=== PATIENT | female | born 1990 | race Caucasian/White ===

== ENCOUNTER 2017-01-19 10:35 | Emergency (ER) | payer BC ==
[2017-01-19 10:51] VITALS: BP 120/75
[2017-01-19] MEDS ORDERED: Ondansetron 4 MG/2 ML SDV IVPUSH ONE (11:07)
[2017-01-19] MEDS ORDERED: Sodium Chloride 0.9% 1,000 ML IV ONE (11:07)
--- NOTE | 2017-01-19 11:19 | EDM.PDOC ---
ED HPI GENERAL MEDICAL PROBLEM - General Chief Complaint: Flank Pain Stated Complaint: GALLBLADDER PAIN/STONE Time Seen by Provider: 01/19/17 11:15 Source of Information: Reports: Patient History Limitations: Reports: No Limitations - History of Present Illness INITIAL COMMENTS - FREE TEXT/NARRATIVE: HISTORY AND PHYSICAL: History of present illness: [Patient comes to the emergency room complaining of right upper quadrant abdominal pain. She states that she had a gallbladder ultrasound yesterday showing a large gallstone. She follows regularly with Dr. Kirby at [facility] and is scheduled to see a surgeon next Sunday, January 25. Patient feels as though it is too long for her to wait to see a surgeon as she is in pain. However the surgeon is out of town until that day and is unable to see her sooner. Today she is also complaining of nausea. Patient verbalizes that she does not want to have any medical care with [facility] and prefers all of her healthcare through [facility]. Discussed with her that we are unable to view her ultrasound result and progress notes through our computer system, but will try to get her information from [facility] while patient is in the ER. Patient last had blood drawn early last week. She has not been taking any over- the-counter medications for her pain or nausea. Denies fever and chills. No sore throat, headaches or earaches. No chest pain shortness of breath or difficulty breathing. No abdominal pain other than stated above. Has not had any vomiting. No change in stools or with urination. No low back pain or muscle or joint aches and pains. Has had no change in her appetite or fluid intake. She is eating normal diet except she has cut dairy from her diet. He] Review of systems: As per history of present illness and below otherwise all systems reviewed and negative. Past medical history: As per history of present illness and as reviewed below otherwise noncontributory. Surgical history: As per history of present illness and as reviewed below otherwise noncontributory. Social history: No reported history of drug or alcohol abuse. Family history: As per history of present illness and as reviewed below otherwise noncontributory. Physical exam: HEENT: Atraumatic, normocephalic. Oral mucous membranes are pink and moist. Lungs: Clear to auscultation, breath sounds equal bilaterally. Heart: S1S2, regular rate and rhythm. Abdomen: Obese. Soft, nondistended. She is tender with palpation over left and right upper quadrant. No CVA tenderness or back pain with palpation. Negative for masses or guarding and rebound. Pelvis: Stable nontender. Genitourinary: Deferred. Rectal: Deferred. Extremities: Atraumatic, no cyanosis or edema to feet or lower legs. Neurovascular unremarkable. Neuro: Awake, alert, oriented. Motor and sensory unremarkable throughout. Exam nonfocal. Psych: Affect is flat, but patient makes good eye contact. Diagnostics: [CBC, CMP, UA, urine , amylase, lipase] Therapeutics: [1 liter NS, Zofran 4mg IV] Impression: [RUQ abdominal pain, history of gallstone] Plan: [Patient elects to leave the ER and follow up with Dr. Kirby. Discussed with patient the labs that are necessary to follow, and that medications can be given for pain and nausea. She chooses to leave the ER and signs out AMA. ] Definitive disposition and diagnosis as appropriate pending reevaluation and review of above. 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: , 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 (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 Below) Other OB/BYN History: HELLP Hematologic History: Reports: Anemia - Past Surgical History Musculoskeletal Surgical History: Reports: Other (See Below) Social & Family History - Family History Family Medical History: Noncontributory Cardiac: Reports: Hypertension - Tobacco Use Smoking Status *Q: Never Smoker Second Hand Smoke Exposure: No - Caffeine Use Caffeine Use: Reports: Coffee Caffeine Use Comment: 2 cups daily - Alcohol Use Days Per Week of Alcohol Use: 0 - Recreational Drug Use Recreational Drug Use: No ED ROS GENERAL - Review of Systems Review Of Systems: ROS reveals no pertinent complaints other than HPI. ED EXAM, GI/ABD - Physical Exam Exam: See Below Course - Vital Signs Last Recorded V/S: Last Vital Signs Temp 97.5 F 01/19/17 10:48 Pulse 68 01/19/17 10:48 Resp 16 01/19/17 10:48 BP 120/75 01/19/17 10:48 Pulse Ox 95 01/19/17 10:48 - Orders/Labs/Meds Meds: Medications Discontinued Medications Generic Name Dose Route Start Last Admin Trade Name Freq PRN Reason Stop Dose Admin Sodium Chloride 1,000 mls @ 999 mls/hr 01/19/17 11:07 Normal Saline IV 01/19/17 12:07 STAT ONE Ondansetron HCl 4 mg 01/19/17 11:07 Zofran IVPUSH 01/19/17 11:08 ONETIME ONE Departure - Departure Time of Disposition: 12:00 Disposition: Against Medical Advice 07 Clinical Impression: RUQ abdominal pain - Discharge Information Referrals: Shaun Kirby MD [Primary Care Provider] - Forms: ED Department Discharge
== END 2017-01-19 11:15 | disposition left against medical advice (07) ==
LOC: MW.ED 10:35
DX: R10.11 Right upper quadrant pain (principal); Z86.2 Personal history of diseases of the blood and blood-forming organs and certain disorders involving the immune mechanism; Z88.1 Allergy status to other antibiotic agents; Z88.2 Allergy status to sulfonamides
CPT/HCPCS: 99283; 99284

== ENCOUNTER 2018-09-13 16:38 | Emergency (ER) | payer BC ==
[2018-09-13 16:57] VITALS: BP 125/86
--- NOTE | 2018-09-13 17:07 | EDM.PDOC ---
ED HPI GENERAL MEDICAL PROBLEM - General Chief Complaint: General Stated Complaint: SICK Time Seen by Provider: 09/13/18 16:50 - History of Present Illness INITIAL COMMENTS - FREE TEXT/NARRATIVE: HISTORY AND PHYSICAL: History of present illness: Patient's 27-year-old white female presents with concern of sore throat 2 weeks has been no fever chills nausea vomiting and no other complaints Review of systems: As per history of present illness and below otherwise all systems reviewed and negative. Past medical history: As per history of present illness and as reviewed below otherwise noncontributory. Surgical history: As per history of present illness and as reviewed below otherwise noncontributory. Social history: No reported history of drug or alcohol abuse. Family history: As per history of present illness and as reviewed below otherwise noncontributory. Physical exam: HEENT: Atraumatic, normocephalic, pupils reactive, negative for conjunctival pallor or scleral icterus, mucous membranes moist, throat injected no peritonsillar fullness no uvular deviation no trismus potato voice, neck supple , nontender, trachea midline. Lungs: Clear to auscultation, breath sounds equal bilaterally, chest nontender. Heart: S1S2, regular, negative for clicks, rubs, or JVD. Abdomen: Soft, nondistended, nontender. Negative for masses or hepatosplenomegaly. Negative for costovertebral tenderness. Pelvis: Stable nontender. Genitourinary: Deferred. Rectal: Deferred. Extremities: Atraumatic, negative for cords or calf pain. Neurovascular unremarkable. Neuro: Awake, alert, oriented. Cranial nerves II through XII unremarkable. Cerebellum unremarkable. Motor and sensory unremarkable throughout. Exam nonfocal. Diagnostics: Rapid strep Therapeutics: None Impression: #1 pharyngitis Definitive disposition and diagnosis as appropriate pending reevaluation and review of above. Throat Pain Score (Numeric/FACES): 2 - Related Data Allergies Allergy/AdvReac Type Severity Reaction Status Date / Time ciprofloxacin Allergy Hives Verified 09/13/18 16:57 clindamycin Allergy Blurred Verified 09/13/18 16:57 Vision doxycycline Allergy Blurred Verified 09/13/18 16:57 Vision Sulfa (Sulfonamide Allergy Hives Verified 09/13/18 16:57 Antibiotics) Home Meds: Home Meds . 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 WATER MANAGER History: HELLP Hematologic History: Reports: Anemia - Past Surgical History Female Surgical History: Reports: Section Musculoskeletal Surgical History: Reports: Other (See Below) Other Musculoskeletal Surgeries/Procedures:: hip surgery Social & Family History - Family History Family Medical History: Noncontributory Cardiac: Reports: Hypertension - Tobacco Use Smoking Status *Q: Never Smoker - Caffeine Use Caffeine Use: Reports: Coffee Caffeine Use Comment: 2 cups daily - Recreational Drug Use Recreational Drug Use: No ED ROS GENERAL - Review of Systems Review Of Systems: ROS reveals no pertinent complaints other than HPI. ED EXAM, GENERAL - Physical Exam Exam: See Below (See dictation) Course - Vital Signs Last Recorded V/S: Last Vital Signs Temp 36.1 C 09/13/18 16:55 Pulse 93 09/13/18 16:55 Resp 18 09/13/18 16:55 BP 125/86 09/13/18 16:55 Pulse Ox 96 09/13/18 16:55 - Orders/Labs/Meds Orders: Active Orders 24 hr Category Date Time Status CULTURE STREP A CONFIRMATION [] Stat Lab 09/13/18 17:01 Results STREP SCRN A RAPID W CULT CONF [] Stat Lab 09/13/18 17:01 Results Departure - Departure Time of Disposition: 18:04 Disposition: Home, Self-Care 01 Condition: Good Clinical Impression: Pharyngitis - Discharge Information Referrals: PCP,Unknown [Primary Care Provider] - Forms: ED Department Discharge Additional Instructions: The following information is given to patients seen in the emergency department who are being discharged to home. This information is to outline your options for follow-up care. We provide all patients seen in our emergency department with a follow-up referral. The need for follow-up, as well as the timing and circumstances, are variable depending upon the specifics of your emergency department visit. If you don't have a primary care physician on staff, we will provide you with a referral. We always advise you to contact your personal physician following an emergency department visit to inform them of the circumstance of the visit and for follow-up with them and/or the need for any referrals to a consulting specialist. The emergency department will also refer you to a specialist when appropriate. This referral assures that you have the opportunity for followup care with a specialist. All of these measure are taken in an effort to provide you with optimal care, which includes your followup. Under all circumstances we always encourage you to contact your private physician who remains a resource for coordinating your care. When calling for followup care, please make the office aware that this follow-up is from your recent emergency room visit. If for any reason you are refused follow-up, please contact the [facility] emergency department at and asked to speak to the emergency department charge nurse. Motrin/Tylenol as directed push fluids follow-up primary medical doctor as needed as discussed return as needed as discussed - My Orders Last 24 Hours: My Active Orders 09/13/18 17:01 CULTURE STREP A CONFIRMATION [RM] Stat STREP SCRN A RAPID W CULT CONF [RM] Stat - Assessment/Plan Last 24 Hours: My Active Orders 09/13/18 17:01 CULTURE STREP A CONFIRMATION [RM] Stat STREP SCRN A RAPID W CULT CONF [] Stat
== END 2018-09-13 18:19 | disposition home or self-care (01) ==
LOC: MW.ED 16:38
DX: J02.9 Acute pharyngitis, unspecified (principal); Z88.1 Allergy status to other antibiotic agents; Z88.2 Allergy status to sulfonamides
CPT/HCPCS: 87081; 87880-QW; 99282; 99283

== ENCOUNTER 2022-10-30 10:30 | Emergency (ER) | payer BC ==
[2022-10-30] MEDS ORDERED: Acetaminophen 325 MG Tab PO ONE (13:07)
[2022-10-30] MEDS ORDERED: Ibuprofen 400 MG Tab PO ONE (13:07)
[2022-10-30 16:16] VITALS: BP 144/87; PULSE 67
== END 2022-10-30 16:15 | disposition home or self-care (01) ==
LOC: MW.ED 10:30
DX: M79.605 Pain in left leg (principal); Z98.890 Other specified postprocedural states; Z88.1 Allergy status to other antibiotic agents; Z88.2 Allergy status to sulfonamides; Z79.899 Other long term (current) drug therapy
CPT/HCPCS: 73590; 93926; 93971; 99284; A9270

== ENCOUNTER 2024-04-16 12:23 | Emergency (ER) | payer BC ==
[2024-04-16] MEDS: Sodium Chloride 0.9% 10 ML Syringe FLUSH PRN (12:55)
[2024-04-16] MEDS: Sodium Chloride 0.9% 2.5 ML Syringe FLUSH PRN (12:55)
[2024-04-16] MEDS: Sodium Chloride 0.9% 1,000 ML IV STA (12:55)
[2024-04-16 13:09] LABS: EOSINOPHILS ABSOLUTE AUTO 0.02 K/uL (0.00-0.45); EOSINOPHILS PERCENT AUTO 0.4 % (0.0-6.0); HEMATOCRIT 42.2 % (37.0-47.0); HEMOGLOBIN 14.2 g/dL (12.0-16.0); IMMATURE GRAN ABSOLUTE AUTO 0.01 K/uL (0.00-0.05); IMMATURE GRAN PERCENT AUTO 0.2 % (0.0-0.4); LYMPHOCYTES ABSOLUTE AUTO 0.98 K/uL (1.00-4.80); LYMPHOCYTES PERCENT AUTO 18.6 % (24.0-44.0); MEAN CORPUSCULAR HEMOGLOBIN 29.3 pg (28.0-32.0); MEAN CORPUSCULAR HGB CONC 33.6 g/dL (32.0-36.0); MEAN PLATELET VOLUME 10.2 fL (9.4-12.3); MONOCYTES ABSOLUTE AUTO 0.35 K/uL (0.00-0.80); MONOCYTES PERCENT AUTO 6.6 % (0.0-8.0); NEUTROPHILS ABSOLUTE AUTO 3.92 K/uL (1.80-7.70); NEUTROPHILS PERCENT AUTO 74.2 % (41.0-71.0); PLATELET COUNT,PLT 264 K/uL (150-400); RED BLOOD CELL COUNT 4.85 M/uL (4.10-5.30); WHITE BLOOD CELL COUNT,WBC 5.28 K/uL (3.9-11.3)
[2024-04-16 13:48] LABS: A/G RATIO 0.9 (0.9-1.6); ALANINE AMINOTRANSFERASE,ALT 27 IU/L (14-63); ALBUMIN 3.6 g/dL (3.4-5.0); ALKALINE PHOSPHATASE 63 U/L (46-116); ASPARTATE AMNIOTRANSFERASE,AST 17 IU/L (15-37); BILIRUBIN TOTAL 0.3 mg/dL (0.2-1.0); BLOOD UREA NITROGEN,BUN 15 mg/dL (7.0-18.0); CALCIUM 9.2 mg/dL (8.5-10.1); CARBON DIOXIDE,CO2 28.3 mmol/L (21.0-32.0); CHLORIDE,CL 107 mmol/L (98-107); EST CRCL DRUG DOSING (CG) 57.48 mL/min; GLUCOSE RANDOM 106 mg/dL (74-106); MAGNESIUM 2.1 mg/dL (1.8-2.4); POTASSIUM,K 3.8 mmol/L (3.5-5.1); PROTEIN TOTAL,TP 7.4 g/dL (6.4-8.2); SODIUM,NA 143 mmol/L (136-145)
[2024-04-16 13:49] LABS: ESTIMATED GFR 76 mL/min (>60)
[2024-04-16 14:42] LABS: APPEARANCE,URINE CLEAR; BILIRUBIN,URINE NEGATIVE (NEGATIVE); COLOR,URINE YELLOW; GLUCOSE,URINE NEGATIVE (NEGATIVE); KETONES,URINE TRACE mg/dL (NEGATIVE); LEUKOCYTE ESTERASE,URINE NEGATIVE (NEGATIVE); NITRITE,URINE NEGATIVE (NEGATIVE); OCCULT BLOOD,URINE TRACE-INTACT (NEGATIVE); PROTEIN,URINE NEGATIVE (NEGATIVE); UROBILINOGEN,URINE 0.2 EU/dL (<2.0)
[2024-04-16 15:40] LABS: EPITHELIAL CELLS,URINE RARE (NONE-FEW); OTHER CRYSTALS,URINE RARE; RBC,URINE 0-1 (0-2/HPF); WBC,URINE 0-2 (0-5/HPF)
[2024-04-16 15:42] VITALS: BP 147/82; PULSE 89
== END 2024-04-16 15:30 | disposition home or self-care (01) ==
LOC: MW.ED 12:23
DX: R42 Dizziness and giddiness (principal); Z88.1 Allergy status to other antibiotic agents; Z88.2 Allergy status to sulfonamides; Z75.8 Other problems related to medical facilities and other health care
CPT/HCPCS: 36415; 80053; 81001; 83735; 84484; 84703; 85025; 93005; 96360; 99284; J3490; J7030

== ENCOUNTER 2024-06-10 08:53 | Day surgery (SDC) | payer BC ==
[~2024-06-10 08:53] MED LIST: Sodium Chloride 0.9% 10 ML Syringe FLUSH PRN; Sodium Chloride 0.9% 2.5 ML Syringe FLUSH PRN; Sodium Chloride 0.9% 20 ML SDV IV PRN
[2024-06-10] MEDS: Lactated Ringers 1,000 ML IV SCH (10:05)
[2024-06-10] MEDS ORDERED: Propofol 200 MG/20 ML SDV ONE (10:45)
[2024-06-10] MEDS ORDERED: Water For Injection, Sterile 20 ML ONE (10:47)
[2024-06-10] MEDS ORDERED: dexmedeTOMIDine HCl 200 MCG/2 ML SDV ONE (10:47)
[2024-06-10] MEDS ORDERED: Midazolam 1 MG/ML 2 ML SDV ONE (10:57)
[2024-06-10 11:58] VITALS: BP 97/69; PULSE 56
== END 2024-06-10 12:10 | disposition home or self-care (01) ==
LOC: MW.SDS 08:53
PROVIDERS: ATTEND Surgery
DX: K29.50 Unspecified chronic gastritis without bleeding (principal); K21.9 Gastro-esophageal reflux disease without esophagitis; F32.A Depression, unspecified; F41.9 Anxiety disorder, unspecified; E66.01 Morbid (severe) obesity due to excess calories; Z68.42 Body mass index [BMI] 45.0-49.9, adult; Z79.899 Other long term (current) drug therapy; Z88.2 Allergy status to sulfonamides; Z88.1 Allergy status to other antibiotic agents
CPT/HCPCS: 43239; 81025; J2250; J2704; J7120; 00731; J3490